=== PATIENT | male | born 1995 | race Asian ===

== ENCOUNTER 2016-06-18 13:22 | Emergency (ER) | payer OTHER ==
[~2016-06-18] VITALS: Ht 172.7 cm; Wt 63.5 kg
[~2016-06-18 13:22] MED LIST: NOCURR
[2016-06-18 15:23] VITALS: BP 100/71
[2016-06-18] MEDS ORDERED: IBUPROFEN 800 MG TABLET PO ONE (16:00)
== END 2016-06-18 16:05 | disposition home or self-care (01) ==
LOC: EMS 13:24
DX: S02.2XXA Fracture of nasal bones, initial encounter for closed fracture (principal); W51.XXXA Accidental striking against or bumped into by another person, initial encounter; Y93.67 Activity, basketball; Y92.89 Other specified places as the place of occurrence of the external cause; Y99.8 Other external cause status
CPT/HCPCS: 70160; 99284